=== PATIENT | male | born 1950 | race Caucasian/White ===

== ENCOUNTER 2020-01-09 08:51 | Emergency (ER) | payer MEDICARE, OTHER ==
--- NOTE | 2020-01-09 09:46 | EDM.PDOC ---
ED HPI GENERAL MEDICAL PROBLEM - General Chief Complaint: ENT Problem Stated Complaint: R EYE RED Time Seen by Provider: 01/09/20 09:30 Source of Information: Reports: Patient History Limitations: Reports: No Limitations - History of Present Illness INITIAL COMMENTS - FREE TEXT/NARRATIVE: 69-year-old male woke up this morning with a very red eye, a feeling of swelling but no significant pain. He has no trauma he knows of and is not on anticoagulants. Onset: Unknown/Unsure (Was fine when he went to bed, woke up with the redness) Location: Reports: Other (Right eye) Right Eye Pain Score (Numeric/FACES): 5 - Related Data Allergies Allergy/AdvReac Type Severity Reaction Status Date / Time Tetanus Vaccines and Toxoid Allergy Rash Verified 01/09/20 09:06 Home Meds: Home Meds NK [No Known Home Meds] 01/09/20 [History] Past Medical History Endocrine/Metabolic History: Reports: Obesity/BMI 30+ - Infectious Disease History Infectious Disease History: Reports: Chicken Pox, Measles, Mumps - Past Surgical History HEENT Surgical History: Reports: Cataract Surgery Musculoskeletal Surgical History: Reports: Shoulder Surgery Social & Family History - Tobacco Use Smoking Status *Q: Never Smoker Second Hand Smoke Exposure: No - Caffeine Use Caffeine Use: Reports: Tea - Alcohol Use Days Per Week of Alcohol Use: 0 - Recreational Drug Use Recreational Drug Use: No ED ROS ENT - Review of Systems Review Of Systems: See Below Constitutional: Denies: Fever, Chills HEENT: Reports: Other (A fullness sensation with hemorrhage, no visual complaints). Denies: Eye Pain Respiratory: Denies: Shortness of Breath GI/Abdominal: Denies: Abdominal Pain Skin: Reports: No Symptoms ED EXAM, ENT - Physical Exam Exam: See Below Exam Limited By: No Limitations General Appearance: Alert, No Apparent Distress Eye Exam: Right Eye: Other (The right eye has significant conjunctival and scleral hemorrhage on the lower aspect), Bilateral Eye: PERRL Respiratory/Chest: No Respiratory Distress Course - Vital Signs Last Recorded V/S: Last Vital Signs Temp 97.2 F 01/09/20 09:14 Pulse 63 01/09/20 09:14 Resp 16 01/09/20 09:14 BP 146/85 H 01/09/20 09:14 Pulse Ox 96 05/23/20 09:14 - Re-Assessments/Exams Free Text/Narrative Re-Assessment/Exam: 01/09/20 09:45 Patient has an isolated scleral or conjunctival hemorrhage of the right eye, no foreign body seen. He will use cool compresses and recheck next week if not improving satisfactorily or return sooner if worsening. Departure - Departure Time of Disposition: 09:54 Disposition: Home, Self-Care 01 Clinical Impression: Conjunctival hemorrhage of right eye - Discharge Information Instructions: Subconjunctival Hemorrhage Referrals: PCP,None [Primary Care Provider] - Forms: ED Department Discharge Care Plan Goals: Cool compresses may be helpful, if not improving satisfactorily or return sooner if worsening such as increased pain or swelling. Sepsis Event Note - Evaluation Sepsis Screening Result: No Definite Risk - Focused Exam Vital Signs: Vital Signs Temp Pulse Resp BP Pulse Ox 01/09/20 09:14 97.2 F 63 16 146/85 H 96 Date Exam was Performed: 01/09/20 Time Exam was Performed: 10:18
== END 2020-01-09 09:54 | disposition home or self-care (01) ==
LOC: JP.ED 08:51
DX: H11.31 Conjunctival hemorrhage, right eye (principal); Z88.7 Allergy status to serum and vaccine
CPT/HCPCS: 99282

== ENCOUNTER 2023-06-22 21:03 | Emergency (ER) | payer MEDICARE, OTHER ==
[2023-06-22] MEDS ORDERED: Diphtheria,Pertussis(Acell),Tetanus Vaccine 0.5 ML Syringe IM ONE (22:50)
== END 2023-06-22 23:41 | disposition home or self-care (01) ==
LOC: JP.ED 21:03
DX: S61.211A Laceration without foreign body of left index finger without damage to nail, initial encounter (principal); E66.9 Obesity, unspecified; Z88.7 Allergy status to serum and vaccine; W26.0XXA Contact with knife, initial encounter
CPT/HCPCS: 12002; 90471; 90715; 99282; 99282-25